=== PATIENT | female | born 1950 | race Caucasian/White ===

== ENCOUNTER 2017-03-25 10:41 | Emergency (ER) | payer OTHER ==
[~2017-03-25] VITALS: Ht 170.2 cm; Wt 90.3 kg
--- NOTE | ~2017-03-25 | 2DMMODE ---
[facility] [address] [address] 2 D/M-MODE ECHOCARDIOGRAM Name: BELLOVERÓNICA Room #: REG Tanner#: [id number] Admission: 03/25/17 Attend Phys: Discharge: Date of : 54 Date of Service: 03/25/17 1417 Report #: [id number] THIS REPORT FOR: //name// APPROVED REPORT Study performed: 03/25/2017 12:57:27 EXAM: Comprehensive 2D, Doppler, and color-flow Echocardiogram Patient Location: ER Room #: 11 Status: routine BSA: 2.02 HR: 68 bpm BP: 143/70 mmHg Other Information Study Quality: Adequate Indications Palpitations Near syncope. 2D Dimensions RVDd: 39.11 mm LVEF(%): 63.97 (>50%) IVSd: 9.63 (7-11mm) LVOT Diam: 18.81 (18-24mm) LVDd: 46.11 mm PWd: 9.62 (7-11mm) Ascending Ao: 29.64 (22-36mm) LVDs: 30.10 (25-40mm) Aortic Root: 26.00 mm IVC: 22.00 mm Ramey's LVEF: 63.97 % Volumes Left Atrial Volume (Systole) Single Plane 4CH: 68.72 mL Single Plane 2CH: 55.30 mL LA ESV Index: 33.00 mL/m2 Aortic Valve AoV Peak Ten.: 1.08 m/s AO Peak Gr.: 4.67 mmHg LVOT Max P.50 mmHg LVOT Max V: 0.94 m/s GUILLERMINA Vmax: 2.41 cm2 Mitral Valve E/A Ratio: 1.1 MV Decel. Time: 175.50 ms [facility] [address] [place] [address] 2 D/M-MODE ECHOCARDIOGRAM Name: VERÓNICA MONSALVE Room #: [facility] ARIEL Hart#: [id number] Admission: 03/25/17 Attend Phys: Discharge: Date of : 54 Date of Service: 03/25/17 1417 Report #: [id number] MV E Max Ten.: 0.64 m/s MV A Ten.: 0.58 m/s MV PHT: 50.89 ms IVRT: 96.89 ms Pulmonary Valve PV Peak Ten.: 0.82 m/s PV Peak Gr.: 2.70 mmHg Pulmonary Vein P Vein S: 0.70 m/s P Vein A: 0.29 m/s P Vein D: 0.31 m/s P Vein A Dur.: 120.0 msec P Vein S/D Ratio: 2.26 Tricuspid Valve TR Peak Ten.: 2.34 m/s TR Peak Gr.: 21.90 mmHg PA Pressure: 32.00 mmHg Left Ventricle The left ventricle is normal size. There is normal left ventricular wall thickness. The left ventricular systolic function is normal. The left ventricular ejection fraction is within the normal range. LVEF is 60-65%. Grade I - abnormal relaxation pattern. Right Ventricle The right ventricle is normal size. The right ventricular systolic function is normal. Atria The left atrium size is normal. Right atrium is at the upper limits of normal. Aortic Valve The aortic valve is normal in structure. No aortic regurgitation is present. There is no aortic valvular stenosis. Mitral Valve The mitral valve is normal in structure. There is no mitral valve regurgitation noted. No evidence of mitral valve stenosis. Tricuspid Valve The tricuspid valve is normal in structure. There is trace tricuspid regurgitation. The right atrial pressure is estimated at 10 mmHg. There is no pulmonary hypertension. Pulmonic Valve [address] [address] 2 D/M-MODE ECHOCARDIOGRAM Name: PLACIDO MONSALVEHA Room #: REG ARIEL Hart#: [id number] Admission: 03/25/17 Attend Phys: Discharge: Date of : 54 Date of Service: 03/25/17 1417 Report #: [id number] The pulmonary valve is normal in structure. There is no pulmonic valvular regurgitation. Great Vessels The aortic root is normal in size. IVC is dilated and collapses >50% with inspiration. Pericardium There is no pericardial effusion. <Conclusion> The left ventricle is normal size. The left ventricular systolic function is normal. The right ventricle is normal size. The left atrium size is normal. The aortic valve is normal in structure. There is no mitral valve regurgitation noted. There is no pericardial effusion. <ELECTRONICALLY SIGNED> By: Mukund Lala MD 03/25/17 141 16 16 Mukund Lala MD /INF
--- NOTE | ~2017-03-25 | EKG ---
[facility] [place] [address] ELECTROCARDIOGRAM REPORT Name: VERÓNICA MONSALVE Room #: REG ARIEL Hart#: [id number] Admission: 03/25/17 Attend Phys: Discharge: Date of : 54 Report #: [id number] THIS REPORT FOR: //name// [facility] ED Test Date: 2017-03-25 Test Time: 10:47:59 Pat Name: VERÓNICA MONSALVE Department: Room: Gender: F Detasseler: Sol OLIVAS : 1950 Requested By: Amber Perales Order Number: [id number] MD: Kolton Galindo Measurements Intervals [place] Rate: 70 P: 38 MI: 144 QRS: 12 QRSD: 84 T: 6 QT: 397 QTc: 429 Interpretive Statements Sinus rhythm Poor R wave progression Nonspecific ST segment abnormality Compared to ECG 03/07/2015 16:11:47 No significant change was found Electronically Signed On 03-25-2017 16:36:04 CDT by Kolton Galindo [email or web address] <ELECTRONICALLY SIGNED> By: Kolton Galindo MD, [facility] 03/25/17 1636 1047 [id number] Kolton Galindo MD, FACC /EPI
[~2017-03-25 10:41] MED LIST: ASTRAGALUS EXT100 GM PO; BOSWELLIA SERRA10 GM PO; CHLOROPHYLL 3 MG3 MG PO; CIPRODEX OTIC7.5 ML OTIC; HYDROCODONE-AP1 EAC6 PO; REISHI MUSHROOM PO; SENOKOT-S1 TA1 PO
[2017-03-25 11:16] LABS: ABSOLUTE NEUTROPHILS 4.1 thou/uL (1.4-8.2); BASOPHILS 1.1 % (0.0-2.0); EOSINOPHILS 2.8 % (0.0-3.0); HEMATOCRIT 43.7 % (37.0-47.0); HEMOGLOBIN 14.7 gm/dL (12.0-15.0); LYMPHOCYTES 23.3 % (24.0-44.0); MANUAL DIFF NO; MCH 29.1 pg (26.0-34.0); MCHC 33.5 g/dL (28.0-37.0); MCV 86.7 fL (80.0-100.0); MONOCYTES 8.8 % (1.0-8.0); PLATELET COUNT 281 thou/uL (150-400); RBC 5.04 mil/uL (4.20-5.00); RDW 13.9 % (10.5-14.5); WBC 6.4 thou/uL (4.0-11.0)
[2017-03-25 11:23] LABS: ANION GAP 8 mmol/L (7-16); BUN 10 mg/dL (7-18); CALCIUM 9.3 mg/dL (8.5-10.1); CHLORIDE 100 mmol/L (98-107); CO2 28 mmol/L (21-32); CREATININE 0.7 mg/dL (0.6-1.0); GLUCOSE 111 mg/dL (74-106); POTASSIUM 4.3 mmol/L (3.5-5.1); SODIUM 136 mmol/L (136-145)
[2017-03-25 11:32] LABS: TROPONIN-I < 0.04 ng/mL (<0.04-0.07)
== END 2017-03-25 16:37 | disposition home or self-care (01) ==
LOC: ER 10:41
PROVIDERS: Emergency Medicine
DX: R55 Syncope and collapse (principal); R00.2 Palpitations; Z88.1 Allergy status to other antibiotic agents